=== PATIENT | female | born 1960 ===

== ENCOUNTER 2017-08-16 06:30 | Day surgery (SDC) | payer OTHER ==
[~2017-08-16 06:30] MED LIST: CELEXA10 MG PO; CLONAZEPAM2 MG PO; GLIPIZI PO; LOSARTAN-HCTZ1 EAC1 PO; PENNSAID2 GM; PREVACID30 MG PO
== END 2017-08-16 13:50 | disposition home or self-care (01) ==
LOC: CIR.AMB 06:30
DX: M65.331 Trigger finger, right middle finger (principal)

== ENCOUNTER 2018-02-08 06:33 | Day surgery (SDC) | payer OTHER ==
[2018-02-08] MEDS ORDERED: PERCOCET 5-3251 EACH PO (12:01)
== END 2018-02-08 12:55 | disposition home or self-care (01) ==
LOC: CIR.AMB 06:33
DX: L72.12 Trichodermal cyst (principal)